=== PATIENT | male | born 1995 | race Native Hawaiian/Other Pacific Islander ===

== ENCOUNTER → 2016-11-14 | Outpatient (CLI) | payer OTHER ==
[~2016-11-14] MED LIST: CONRAY-43 43% 50ML VIAL (Q9960) As Ordered ONE
--- NOTE | 2016-11-14 15:51 | REP ---
MRI RIGHT SHOULDER WITHOUT WITH CONTRAST ARTHROGRAM: 11/14/2016. Clinical history: Chronic shoulder pain. No comparison study provided. Technique: Precontrast T1 and fat suppressed T2 coronal axial fat suppressed T2 images and following gadolinium arthrogram by Juancho Del Rio, under my direct supervision, post arthrogram axial fat suppressed T1 and PD, sagittal fat suppressed T2, coronal fat suppressed T1 and T2 sequences and an AV air fat suppressed T1 sequence provided. Findings: AC joint shows a tiny spur inferiorly from the clavicle at the joint subtly indenting the musculotendinous junction rotator cuff is so peripheral acromial spur spur contributes to some bursal surface fraying on the supraspinatus. There is an substance of signal abnormality in the supraspinatus with linear signal in the tendon parallel to its course and also oblique hyperintense signal extending from its inferior margin toward the superior margin suggesting to this significant tendinopathy tendinosis. Cannot exclude a partial tear but there is no evidence of a complete tear, retraction of the tendon nor atrophy of the muscle belly. I do not see subacromial fluid and only trace subdeltoid bursal fluid. There is no glenohumeral joint effusion. The coracoclavicular and coracohumeral ligaments are intact. Biceps tendon is seated in its groove. There is a type 2 anterior capsular insertion on the glenoid. There is thickening of the subscapularis tendon near its insertion. No atrophy of its muscle belly or tear of that tendon. The infraspinatus and teres minor tendons and muscles intact. Contrast arthrogram images do not show extension of contrast to the subacromial or subdeltoid bursa indicating rotator cuff is not torn no evidence of a labral tear. The biceps labral complex was grossly intact. The 8 meters sequence confirms. Impression: 1. Tendinopathy/tendinosis of the supraspinatus tendon without full-thickness tear, retraction of the tendon nor atrophy of its muscle belly. Small spur from the clavicle at the AC joint gently indenting the musculotendinous junction. No subacromial or subdeltoid bursal communication arthrogram to suggest tear. 2. No labral tear. The biceps labral complex and biceps tendon intact. 3. Subscapularis tendinopathy without a tear of the muscle intact infraspinatus and teres minor tendons and muscles intact. 4. Coracoclavicular and coracohumeral ligaments intact. No bone bruise or fracture. Signed by Jack De La Cruz MD 11/14/2016 09:03 A
--- NOTE | 2016-11-14 17:06 | REP ---
Procedure: Right shoulder arthrogram The procedure was performed under the direct supervision of Dr. De La Cruz. History: Right shoulder pain The benefits and risks including but not limited to pain, infection, bleeding and anaphylaxis were explained to the patient and informed consent was obtained. Technique: The right glenohumeral joint space was localized using fluoroscopic guidance. The skin was prepped and draped in a sterile fashion. 1% lidocaine was used as a local anesthetic. Using fluoroscopic guidance a 22 gauge spinal needle was inserted and advanced into the joint. 0.5 ml of Conray 43 was injected to verify placement. 11 ml of a solution containing 20 ml of sterile saline and 0.15 ml of ProHance was injected into the joint. The needle was removed and the patient was taken to MRI for postprocedural imaging. The the patient tolerated the procedure well and there were no immediate complications. 1 second of fluoro time was utilized for this procedure. Reviewed by TITO Carey 11/14/2016 09:29 ASigned by Jack De La Cruz MD 11/14/2016 04:39 P
== END ==
LOC: M RADPRO 07:12
DX: M65.811 Other synovitis and tenosynovitis, right shoulder (principal)
CPT/HCPCS: 23350; 73223; 77002; A9576; Q9960